=== PATIENT | male | born 1985 | race African-American/Black ===

== ENCOUNTER 2022-07-28 21:28 | Emergency (ER) | payer MEDICAID, OTHER ==
[~2022-07-28] VITALS: Ht 180.3 cm; Wt 75.9 kg
[2022-07-28 22:25] VITALS: BP 138/73
[2022-07-29] MEDS ORDERED: BACITRACIN ZINC OINT UDPKT TOP ONE (01:00)
== END 2022-07-29 01:00 | disposition home or self-care (01) ==
LOC: ER 21:28
DX: Z48.02 Encounter for removal of sutures (principal)
CPT/HCPCS: 99281; Z7610

== ENCOUNTER 2022-09-07 11:33 | Emergency (ER) | payer MEDICAID ==
[~2022-09-07] VITALS: Ht 180.3 cm; Wt 63.6 kg
[2022-09-07 11:54] VITALS: BP 125/80
== END 2022-09-07 15:10 | disposition home or self-care (01) ==
LOC: ER 11:49
DX: R53.1 Weakness (principal); Z00.00 Encounter for general adult medical examination without abnormal findings; R45.1 Restlessness and agitation
CPT/HCPCS: 99281

== ENCOUNTER 2023-06-21 01:24 | Emergency (ER) | payer MEDICAID ==
[~2023-06-21] VITALS: Ht 182.9 cm; Wt 80.0 kg
[2023-06-21 01:44] VITALS: O2SAT 98
[2023-06-21] MEDS: ACETAMINOPHEN 325MG TABLET PO ONE (04:09)
[2023-06-21] MEDS: TETANUS, DIPHTHERIA, PERTUSSIS VAC/PF 0.5ML (>10YR OLD) IM ONE (04:09)
[2023-06-21] MEDS: BACITRACIN ZINC OINT UDPKT TOP ONE (04:29)
[2023-06-21] MEDS: LIDOCAINE HCL/PF 1% 10 MG/ML 5ML VIAL INFIL ONE (04:30)
[2023-06-21 04:40] VITALS: BP 146/90; PULSE 83; RESP 20; TEMP 98.7
== END 2023-06-21 04:41 | disposition home or self-care (01) ==
LOC: ER 01:24
DX: S61.011A Laceration without foreign body of right thumb without damage to nail, initial encounter (principal); W45.8XXA Other foreign body or object entering through skin, initial encounter; Y93.89 Activity, other specified; Y92.89 Other specified places as the place of occurrence of the external cause; Y99.8 Other external cause status
CPT/HCPCS: 12002; 99282; J3490; Z7610 ×3